=== PATIENT | female | born 1950 | race Caucasian/White ===

== ENCOUNTER 2019-02-13 06:20 | Emergency (ER) | payer OTHER ==
[~2019-02-13] VITALS: Ht 157.5 cm; Wt 52.6 kg
[2019-02-13] MEDS ORDERED: SYNTHROID50 MCG PO (06:40)
[2019-02-13] MEDS ORDERED: ASPIR-LOW81 MG PO (06:41)
[2019-02-13] MEDS ORDERED: LIPITOR20 MG PO (06:41)
== END 2019-02-13 22:03 | disposition home or self-care (01) ==
LOC: ER 06:20
DX: R42 Dizziness and giddiness (principal)